=== PATIENT | female | born 1925 | race Caucasian/White ===

== ENCOUNTER 2016-09-09 19:57 | Inpatient (IN) | payer OTHER ==
[~2016-09-09] VITALS: Ht 157.5 cm; Wt 47.9 kg
--- NOTE | ~2016-09-09 | O ---
[facility] [place] [address] OPERATIVE REPORT Name: SARKIS HERNANDEZ Room #: 546-P ADM IN M.R.#: [id number] Admission: 09/09/16 Attend Phys: Robert Beasley MD Discharge: Date of : 10/[birth year] Report #: [id number] THIS REPORT FOR: //name// CC: Paul Cooley DATE OF SERVICE: 09/12/2016 PREOPERATIVE DIAGNOSIS: Right hip intertrochanteric hip fracture. POSTOPERATIVE DIAGNOSIS: Right hip intertrochanteric hip fracture. PROCEDURE: Right hip intramedullary nail. SURGEON: Sonido Cooley MD. ANESTHESIA: General. ESTIMATED BLOOD LOSS: 50 mL. CARPENTER'S ASSISTANT: LEO Nuñez. DESCRIPTION OF PROCEDURE: The patient was brought to the operating room where she was placed under general anesthesia. Once under adequate general anesthesia, her right upper extremity was placed into traction on the fracture table. Reduction of the fracture was then achieved, was verified under fluoroscopy. A 2 cm incision was made proximal to the tip of the greater trochanter and subsequent placement of the curved cannulated awl was then made. Utilizing fluoroscopy for guidance, guidewire for the Synthes trochanteric femoral nail was then placed. Subsequent to this, an 11 mm Synthes intramedullary nail was placed down into the shaft of the femur. Subsequently, a compression screw was placed into the head of the femur in a standard ____ position. After reaming and drilling for this through a separate 1.5 cm incision, the Align locking screw was then placed proximally and utilizing the outline jig, a separate 1 cm incision was made over the transverse locking screw, which was then placed as well under fluoroscopic guidance. Excellent fixation and alignment was achieved in this manner as verified under fluoroscopy. The wound was irrigated copiously and closed with 2-0 Vicryl and subcutaneous tissues and jason for the skin. The wounds were dressed with Xeroform, 4 x 4s, and sterile soft compressive dressing was placed. There were [facility] [address] [place] [address] OPERATIVE REPORT Name: DAVIDSARKIS Room #: 546-P [facility] IN ..#: [id number] Admission: 09/09/16 Attend Phys: Robert Beasley MD Discharge: Date of : 10/16/[birth year] Report #: [id number] no complications from the procedure. The patient tolerated the procedure well and went to the recovery room without incident. By: 0828 1110 Sonido Cooley MD /nt
--- NOTE | ~2016-09-09 | HC ---
[facility] [place] [address] CONSULTATION Name: SARKIS HERNANDEZ Room #: 546-P ADM IN M.R.#: [id number] Admission: 09/09/16 Attend Phys: Robert Beasley MD Discharge: Date of : 10/16/[birth year] Report #: [id number] THIS REPORT FOR: //name// CC: Paul Cooley CHIEF COMPLAINT: Right hip fracture. HISTORY OF PRESENT ILLNESS: This is an 89-year-old patient who had a fall apparently in the kitchen when her legs gave way. She was evaluated in the emergency room and determined to have a right intertrochanteric hip fracture. Orthopedics was consulted for management. PAST MEDICAL HISTORY: Significant for dementia, anxiety disorder, gastroesophageal reflux disease, hypertension with chronic renal disease, hyperlipidemia, and macular degeneration. MEDICATIONS: Noted on the MAY. ALLERGIES: BARBITURATES AND PENICILLINS. SOCIAL HISTORY: Negative for alcohol use. REVIEW OF SYSTEMS: As above. PHYSICAL EXAMINATION: VITAL SIGNS: Blood pressure of 156/52, temperature is 36.7, pulse 79, and respiratory rate is 18. EXTREMITIES: Examination of the patient's right lower extremity notes a shortened and externally rotated pain with any motion through her leg and hip. She otherwise has motor intact distally with good pulses. LABORATOR STUDIES: Hemoglobin of 7.8. Potassium was 5.8 yesterday. IMAGING STUDIES: X-rays of the right hip and femur note a right hip intertrochanteric femur fracture which has shortened and in varus angulation. IMPRESSION: Right intertrochanteric hip fracture. PLAN: At this point, would be to proceed with a right hip intramedullary nail once the patient is able to be cleared and is ready for surgery. [facility] [address] [place] [address] CONSULTATION Name: SARKIS HERNANDEZ Room #: 546-P [facility] IN ..#: [id number] Admission: 09/09/16 Attend Phys: Robert Beasley MD Discharge: Date of : 10/16/[birth year] Report #: [id number] Thank you for allowing me to participate in the care of this pleasant patient. <ELECTRONICALLY SIGNED> By: Sonido Cooley MD 09/11/16 0841 0914 26 Sonido Cooley MD /nt
--- NOTE | ~2016-09-09 | D ---
[facility] [place] [address] DISCHARGE SUMMARY Name: SARKIS HERNANDEZ Room #: 546-P [facility] IN M.R.#: [id number] Admission: 09/09/16 Attend Phys: Robert Beasley MD Discharge: 09/15/16 Date of : 10/16/[birth year] Report #: [id number] THIS REPORT FOR: //name// CC: Paul Orlandoew Yasir DATE OF SERVICE: 09/15/2016 FINAL DIAGNOSES: 1. Acute right intertrochanteric femur fracture. 2. Anemia of chronic renal disease. 3. Chronic kidney disease stage IV. 4. Senile dementia of Alzheimer disease. HOSPITAL COURSE: The patient was admitted from her care facility with the right hip fracture after accidental fall. She was medically stabilized and eventually taken to the operating room. She did require 2 units of blood transfusion prior to admission due to hemoglobin below 7, postoperatively hemoglobin remained stable around 7.6-8. Kidney numbers were noted with creatinine of 1.6-2. She was very confused during her stay, often refusing therapy and pulling out IVs. Staff assisted her to the best of their ability given her dementia, with help of her daughter, they were able to into getting up with therapy to the chair. PHYSICAL EXAMINATION: GENERAL: On the day of discharge, she was resting in bed with stable vital signs LUNGS: Clear and she was off oxygen. HEART: Regular. ABDOMEN: Soft, normoactive bowel sounds. EXTREMITIES: No edema. DISPOSITION: She will be discharged to [facility] with diet and activity as tolerated, physical and occupational therapy as she can tolerate. Follow up with Dr. Fontana in 1 week. MEDICINES: Tylenol, fentanyl patch 12.5 mcg every 3 days, Lovenox 30 mg at bedtime for 24 days, hydrocodone 5 mg q.4 p.r.n., Ativan 1 mg q. 8 hours p.r.n., Namenda 5 mg b.i.d., Requip 1 mg at bedtime, Tramadol 50 mg q. 4 hours p.r.n. pain. <ELECTRONICALLY SIGNED> By: Robert Beasley MD 09/15/16 1145 1030 1042 Robert Beasley MD /nt
--- NOTE | ~2016-09-09 | EKG ---
[address] [email or web address] [address] ELECTROCARDIOGRAM REPORT Name: SARKIS HERNANDEZ Room #: 546-P ADM IN M.R.#: [id number] Admission: 09/09/16 Attend Phys: Robert Beasley MD Discharge: Date of : 10/16/[birth year] Report #: [id number] THIS REPORT FOR: //name// [facility] ED Test Date: 2016-09-09 Test Time: 20:30:17 Pat Name: SARKIS HERNANDEZ Department: Room: 546 Gender: F [employer] Pharmacist: KAMALJIT : [id number] Requested By: Chris Vasquez Order Number: [id number] MD: Benny Bell Measurements Intervals [place] Rate: 79 P: 19 [place]: 218 QRS: 4 QRSD: 85 T: 60 QT: 361 QTc: 414 Interpretive Statements Sinus rhythm Borderline prolonged [place] interval Probable anteroseptal infarct, old Compared to ECG 02/08/2010 11:58:21 No significant changes Electronically Signed On 09-10-2016 10:17:15 CDT by Benny Bell [email or web address] <ELECTRONICALLY SIGNED> By: Benny Bell MD, [facility] 09/10/16 1017 2030 29 Benny Bell MD, [facility] /EPI
--- NOTE | ~2016-09-09 | H ---
[facility] [place] [address] HISTORY AND PHYSICAL Name: SARKIS HERNANDEZ Room #: 546-P ADM IN M.R.#: [id number] Admission: 09/09/16 Attend Phys: Robert Beasley MD Discharge: Date of : 10/16/[birth year] Report #: [id number] THIS REPORT FOR: //name// CC: Paul Orlandoew Yasir DATE OF SERVICE: 09/10/2016 CHIEF COMPLAINT: Right leg pain. HISTORY OF PRESENT ILLNESS: The patient is an 89-year-old female who is at the nursing unit at [facility] who suffered a fall and fracture of her right leg. She has a baseline history of dementia and really cannot provide any details. Reviewing the record, it appears she had an unwitnessed fall. She was found on the floor and reported that her "legs gave away" I spoke with the ER physician and there was an obvious deformity of the right leg with foreshortening and x-rays confirmed complex proximal femur fracture. PAST MEDICAL HISTORY: Senile dementia, hearing loss, anxiety, gastroesophageal reflux disease, hypertension, chronic kidney disease stage 4, dyslipidemia, macular degeneration. PAST SURGICAL HISTORY: Unknown. FAMILY HISTORY: Unknown. SOCIAL HISTORY: No chronic alcohol or tobacco use. She lives at the nursing center for several years. ALLERGIES: PENICILLIN AND BARBITUATES. MEDICATIONS: Ativan as needed, tramadol as needed, aspirin, iron, B12, Requip 1 mg at bedtime, Neurontin 100 mg t.i.d., BuSpar 10 mg b.i.d., Aggrenox, omeprazole 20 mg, Norvasc 5 mg, Lexapro 10 mg, lisinopril 10 mg, Tylenol, Namenda 10 mg. REVIEW OF SYSTEMS: She complains of pain. Denies shortness of breath, chest pain, abdominal pain, nausea, vomiting, dysuria. OBJECTIVE: VITAL SIGNS: Temperature 36.7, pulse , respirations 20, blood pressure 111/40, O2 sat 100% on 2 liters nasal cannula. GENERAL: She is an elderly female, who looks chronically ill. She is awake and alert, pleasant, fluent speech. HEAD AND NECK: Unremarkable. [facility] [address] [place] [address] HISTORY AND PHYSICAL Name: SARKIS HERNANDEZ Room #: 546-P [facility] IN ..#: [id number] Admission: 09/09/16 Attend Phys: Robert Beasley MD Discharge: Date of : 10/16/[birth year] Report #: [id number] LUNGS: Clear. HEART: Regular, no murmur. ABDOMEN: Soft, normoactive bowel sounds. EXTREMITIES: No cyanosis, clubbing or edema. There is some swelling in the right thigh, it is externally rotated and shortened. NEUROLOGIC: Her speech is fluent. She moves all extremities equally. She is pleasantly confused. IMAGING: Right hip x-ray reveals right intertrochanteric femur fracture. LABORATORY DATA: Creatinine is , potassium was 5.2, hemoglobin 7.8. ASSESSMENT: 1. Right proximal femur fracture. 2. Chronic kidney disease stage 4. 3. Anemia of chronic disease. 4. Hypertension. 5. Hyperkalemia likely due to TAM inhibitor. 6. Senile dementia. PLAN: She has received Kayexalate overnight, her potassium has dropped closer to normal. I will repeat a dose with, I will repeat her lab work this morning, medically she is stable to proceed with surgery to the right hip. We will plan on transfusion as needed for symptoms postoperatively. She has order from the facility of no intubation in the event of cardiopulmonary arrest, but she should go to surgery for stabilization of her fracture. Lovenox, DVT prophylaxis are similar postoperatively. <ELECTRONICALLY SIGNED> By: Robert Beasley MD 09/11/16 0834 0801 0935 Robert Beasley MD /nt
[~2016-09-09 19:57] MED LIST: A/F PAIN RELIE500 M1 PO; ACETAMINOPHEN325 M1 PO; AGGRENOX CAPSU1 EACH PO; AMLODIPINE BESYL5 MG PO; APAP500 PO; ASPIRIN EC81 M1 PO; ATIVAN1 MG PO; BUSPAR 5 MG TABL5 M1 PO; CIPROFLOXACIN500 M1 PO; DESYREL50 MG PO; FERRO-TIME325 MG PO; LIBRIUM10 MG PO; LISINOPRIL20 MG PO; LOPERAMIDE 2 MG2 M1 PO; LOPERAMIDE 2 MG2 MG PO; MIRTAZAPINE7.5 MG PO; MYLANTA 12 OZ355 M1 PO; NEURONTIN 300300 M1 PO; OMEPRAZOLE 20 M20 M1 PO; OMEPRAZOLE20 MG PO; OXYBUTYNIN 5 MG5 M1 PO; OXYBUTYNIN CHLO10 MG PO; OYSTER SHELL C1 EA12 PO; PRILOSEC 20 MG20 MG PO; PRINIVIL20 MG PO; QUESTRAN LIGHT P4 GM PO; QUESTRAN PACKET4 GM PO; REQUIP 1 MG TABL1 M1 PO; REQUIP 1 MG TABL1 MG PO; SILVADENE20 GM; SIMVASTATIN10 MG PO; TRAMADOL 50 MG50 MG PO; TRAZODONE 50 MG50 MG PO; ULTRAM 50MG TAB50 MG PO; VITAMIN B-12500 MCG PO; ZOCOR 10 MG TAB10 MG PO; [UNRECOGNIZED DRUG - OTHER] PO; [UNRECOGNIZED DRUG - OTHER] PO
[2016-09-09 19:58] VITALS: BP 156/52
[2016-09-09] MEDS ORDERED: MULTIVITAMINS1 EAC7 PO (20:15)
[2016-09-09] MEDS ORDERED: LEXAPRO 10 MG T10 M2 PO (20:16)
[2016-09-09] MEDS ORDERED: ZESTRIL10 MG PO (20:16)
[2016-09-09] MEDS ORDERED: ICAPS AREDS FO1 EACH PO (20:17)
[2016-09-09] MEDS ORDERED: DIPHENHIST50 MG PO (20:18)
[2016-09-09] MEDS ORDERED: TYLENOL325 MG PO (20:19)
[2016-09-09] MEDS ORDERED: NAMENDA 10 MG T10 MG PO (20:22)
[2016-09-09 20:42] LABS: ANION GAP 9 mmol/L (7-16); BUN 38 mg/dL (7-18); CALCIUM 8.6 mg/dL (8.5-10.1); CHLORIDE 100 mmol/L (98-107); CO2 22 mmol/L (21-32); CREATININE 2.1 mg/dL (0.6-1.0); GLUCOSE 100 mg/dL (74-106); POTASSIUM 5.8 mmol/L (3.5-5.1); SODIUM 131 mmol/L (136-145)
[2016-09-09 20:50] LABS: TROPONIN-I < 0.04 ng/mL (<0.04-0.07)
[2016-09-09 22:29] LABS: HEMOGLOBIN 7.8 gm/dL (12.0-15.0); MCH 29.1 pg (26.0-34.0); MCHC 32.5 g/dL (28.0-37.0); MCV 89.6 fL (80.0-100.0); PLATELET COUNT 201 thou/uL (150-400); RBC 2.68 mil/uL (4.20-5.00); RDW 13.5 % (10.5-14.5)
[2016-09-09 22:32] LABS: MANUAL DIFF YES
[2016-09-09 22:56] VITALS: BP 112/42
[2016-09-09 23:09] VITALS: BP 103/36
[2016-09-09 23:36] LABS: ABSOLUTE NEUTROPHILS 15.8 thou/uL (1.4-8.2); TOTAL CELL COUNT 100
[2016-09-09 23:39] VITALS: BP 91/35
[2016-09-10] VITALS (7 sets, daily range): BP systolic 87–127; BP diastolic 33–55
[2016-09-10 03:58] LABS: CALCIUM 7.8 mg/dL (8.5-10.1); CREATININE 2.2 mg/dL (0.6-1.0); POTASSIUM 5.2 mmol/L (3.5-5.1)
[2016-09-10 09:16] LABS: HEMOGLOBIN 6.7 gm/dL (12.0-15.0)
[2016-09-10 09:28] LABS: PROTIME 10.5 Seconds (9.3-11.4)
[2016-09-10 09:29] LABS: CALCIUM 7.8 mg/dL (8.5-10.1)
[2016-09-11] VITALS (7 sets, daily range): BP systolic 107–140; BP diastolic 35–72
[2016-09-11 03:38] LABS: RBC 1.8 mil/uL (4.20-5.00)
[2016-09-11 03:40] LABS: MCH 29.8 pg (26.0-34.0); MCHC 33.4 g/dL (28.0-37.0); MCV 89.2 fL (80.0-100.0); RDW 14.1 % (10.5-14.5); WBC 17.7 thou/uL (4.0-11.0)
[2016-09-11 03:45] LABS: HEMOGLOBIN 5.3 gm/dL (12.0-15.0)
[2016-09-11 03:50] LABS: CALCIUM 7.5 mg/dL (8.5-10.1); CREATININE 2.1 mg/dL (0.6-1.0); POTASSIUM 4.8 mmol/L (3.5-5.1)
[2016-09-11 09:01] LABS: HEMATOCRIT 17.1 % (37.0-47.0)
[2016-09-11 09:02] LABS: HEMOGLOBIN 5.5 gm/dL (12.0-15.0)
[2016-09-12 03:50] LABS: HEMATOCRIT 24.1 % (37.0-47.0); MCH 30.7 pg (26.0-34.0); MCHC 34.2 g/dL (28.0-37.0); MCV 89.7 fL (80.0-100.0); RBC 2.68 mil/uL (4.20-5.00); RDW 13.9 % (10.5-14.5); WBC 15.3 thou/uL (4.0-11.0)
[2016-09-12 03:52] LABS: HEMOGLOBIN 8.2 gm/dL (12.0-15.0)
[2016-09-12 03:56] LABS: CALCIUM 7.7 mg/dL (8.5-10.1); CREATININE 1.7 mg/dL (0.6-1.0); POTASSIUM 4.5 mmol/L (3.5-5.1)
[2016-09-12 19:46] VITALS: BP 108/40
[2016-09-13 02:47] VITALS: BP 137/47
[2016-09-13 07:38] LABS: HEMATOCRIT 21.9 % (37.0-47.0); HEMOGLOBIN 7.5 gm/dL (12.0-15.0); MCH 30.9 pg (26.0-34.0); MCHC 34.1 g/dL (28.0-37.0); MCV 90.7 fL (80.0-100.0); RBC 2.41 mil/uL (4.20-5.00); RDW 13.9 % (10.5-14.5); WBC 10.6 thou/uL (4.0-11.0)
[2016-09-13 07:44] LABS: CALCIUM 7.8 mg/dL (8.5-10.1); CREATININE 1.7 mg/dL (0.6-1.0); POTASSIUM 4.4 mmol/L (3.5-5.1)
[2016-09-13 16:00] VITALS: BP 137/50
[2016-09-13 19:18] VITALS: BP 140/54
[2016-09-13 19:39] VITALS: BP 123/68
[2016-09-13 23:33] VITALS: BP 103/52
[2016-09-14 04:47] VITALS: BP 136/85
[2016-09-14 07:49] LABS: HEMATOCRIT 21.2 % (37.0-47.0); HEMOGLOBIN 7.2 gm/dL (12.0-15.0); MCH 30.7 pg (26.0-34.0); MCHC 33.9 g/dL (28.0-37.0); MCV 90.6 fL (80.0-100.0); RBC 2.34 mil/uL (4.20-5.00); RDW 13.9 % (10.5-14.5); WBC 10.2 thou/uL (4.0-11.0)
[2016-09-14 07:56] LABS: CALCIUM 7.8 mg/dL (8.5-10.1); CREATININE 1.6 mg/dL (0.6-1.0); POTASSIUM 4.2 mmol/L (3.5-5.1)
[2016-09-14 07:57] VITALS: BP 141/54
[2016-09-14] MEDS ORDERED: ENOXAPARIN30 MG/0.1 SUBQ (12:24)
[2016-09-14] MEDS ORDERED: FENTANYL PA12 MCG/H1 TRANSDERM (12:25)
[2016-09-14] MEDS ORDERED: HYDROCODON-ACE1 EAC7 PO (12:25)
[2016-09-14] MEDS ORDERED: ATIVAN1 MG PO (12:26)
[2016-09-14 17:05] VITALS: BP 124/49
[2016-09-14 20:24] VITALS: BP 150/67
[2016-09-15 04:57] VITALS: BP 134/63
[2016-09-15 06:09] LABS: HEMATOCRIT 21.3 % (37.0-47.0); HEMOGLOBIN 7.3 gm/dL (12.0-15.0); MCH 30.8 pg (26.0-34.0); MCHC 34.1 g/dL (28.0-37.0); MCV 90.3 fL (80.0-100.0); RBC 2.36 mil/uL (4.20-5.00); RDW 13.9 % (10.5-14.5); WBC 9.3 thou/uL (4.0-11.0)
[2016-09-15 06:19] LABS: CALCIUM 7.7 mg/dL (8.5-10.1); CREATININE 1.6 mg/dL (0.6-1.0); POTASSIUM 4.1 mmol/L (3.5-5.1)
[2016-09-15 07:40] VITALS: BP 161/63
== END 2016-09-15 11:37 | DRG 481 ==
LOC: ER 19:57 → EROBS 21:59 → 5S 21:59
PROVIDERS: Emergency Medicine; Internal Medicine Geriatric Medicine; Orthopaedic Surgery Foot and Ankle Surgery; Student in an Organized Health Care Education/Training Program
PROC: 30233N1 Transfusion of Nonautologous Red Blood Cells into Peripheral Vein, Percutaneous Approach (ICD-10-PCS; 2016-09-11)
PROC: B548ZZA Ultrasonography of Superior Vena Cava, Guidance (ICD-10-PCS; 2016-09-11)
PROC: 02HV33Z Insertion of Infusion Device into Superior Vena Cava, Percutaneous Approach (ICD-10-PCS; 2016-09-11)
PROC: 0QS636Z Reposition Right Upper Femur with Intramedullary Internal Fixation Device, Percutaneous Approach (ICD-10-PCS; principal; 2016-09-12)
DX: S72.141A Displaced intertrochanteric fracture of right femur, initial encounter for closed fracture (principal); N18.4 Chronic kidney disease, stage 4 (severe); N17.9 Acute kidney failure, unspecified; F41.9 Anxiety disorder, unspecified; K21.9 Gastro-esophageal reflux disease without esophagitis; E78.5 Hyperlipidemia, unspecified; H35.30 Unspecified macular degeneration; G30.9 Alzheimer's disease, unspecified; I12.9 Hypertensive chronic kidney disease with stage 1 through stage 4 chronic kidney disease, or unspecified chronic kidney disease; F02.80 Dementia in other diseases classified elsewhere, unspecified severity, without behavioral disturbance, psychotic disturbance, mood disturbance, and anxiety; H91.90 Unspecified hearing loss, unspecified ear; E87.5 Hyperkalemia; W18.39XA Other fall on same level, initial encounter; Y93.89 Activity, other specified; Y92.89 Other specified places as the place of occurrence of the external cause; Z88.0 Allergy status to penicillin; Z88.8 Allergy status to other drugs, medicaments and biological substances; Y99.8 Other external cause status
CPT/HCPCS: 10086; 27000; 50010; 50101; 50133; 50386; 50455; 50635; 51412; 51538; 51817; 52295; 55445; 56524; 57092; 62110; 62900; 70005